=== PATIENT | female | born 1990 ===

== ENCOUNTER 2022-11-12 04:48 | Inpatient (IN) | payer MEDICAID ==
[2022-11-12] MEDS ORDERED: Methylergonovine 0.2 MG/1 ML Amp IM PRN (05:12)
[2022-11-12] MEDS ORDERED: Sodium Chloride 0.9% 10 ML Syringe FLUSH PRN (05:12)
[2022-11-12] MEDS ORDERED: Tranexamic Acid 1,000 MG in Sodium Chloride 0.9% 100 ML IV PRN (05:12)
[2022-11-12] MEDS ORDERED: Misoprostol 200 MCG Tab PO PRN (05:12)
[2022-11-12] MEDS ORDERED: Sodium Chloride 0.9% 2.5 ML Syringe FLUSH PRN (05:12)
[2022-11-12] MEDS ORDERED: Lidocaine 1% 50 ML MDV INJECT PRN (05:12)
[2022-11-12] MEDS ORDERED: Sodium Chloride 0.9% 20 ML SDV IV PRN (05:12)
[2022-11-12] MEDS ORDERED: Water For Irrigation,Sterile 1,000 ML Container IRR PRN (05:12)
[2022-11-12] MEDS ORDERED: Butorphanol 1 MG/ML SDV IVPUSH PRN (05:12)
[2022-11-12] MEDS ORDERED: Terbutaline 1 MG/ML SDV SUBCUT PRN (05:12)
[2022-11-12] MEDS ORDERED: Carboprost Tromethamine 250 MCG/1 ML Amp IM PRN (05:12)
[2022-11-12] MEDS ORDERED: Ondansetron 4 MG/2 ML SDV IVPUSH PRN (05:12)
[2022-11-12] MEDS ORDERED: Oxytocin/0.9 % Sodium Chloride 30 UNIT/500 ML BAG IV SCH (05:15)
[2022-11-12] MEDS ORDERED: Ampicillin 2 GM AdvVial IV ONE (05:19)
[2022-11-12] MEDS ORDERED: Sodium Chloride 0.9% 100 ML ONE (05:19)
[2022-11-12] MEDS: Lactated Ringers 1,000 ML IV SCH ×3 (05:27→11:42)
[2022-11-12] MEDS ORDERED: Ampicillin 2 GM in Sodium Chloride 0.9% 100 ML IV ONE (05:30)
[2022-11-12] MEDS ORDERED: Misoprostol 25 MCG (1/4 of 100 MCG) Tab VAG PRN ×2 (05:30→09:30)
[2022-11-12] MEDS: Oxytocin/0.9 % Sodium Chloride 30 UNIT/500 ML BAG IV SCH ×2 (05:32→10:23)
[2022-11-12] MEDS ORDERED: Ropivacaine/PF 400 MG/200 ML PCA ONE (09:27)
[2022-11-12] MEDS: Ampicillin 1 GM in Sodium Chloride 0.9% 50 ML IV SCH ×3 (09:30→17:14)
[2022-11-12] MEDS ORDERED: ePHEDrine 50 MG/ML SDV IVPUSH PRN (09:48)
[2022-11-12] MEDS ORDERED: Phenylephrine HCl In 0.9% NaCl 1 MG/10 ML Vial IVPUSH PRN (09:48)
[2022-11-12] MEDS ORDERED: Ropivacaine HCl/PF 400 MG in Premix Bag 1 BAG EPIDUR SCH (10:00)
[2022-11-12] MEDS ORDERED: oxyCODONE 5 MG Tab PO PRN (21:03)
[2022-11-12] MEDS ORDERED: Ibuprofen 400 MG Tab PO PRN (21:03)
[2022-11-12] MEDS ORDERED: Bisacodyl 10 MG Supp RECTAL PRN (21:03)
[2022-11-12] MEDS ORDERED: Docusate Sodium 100 MG Cap PO PRN (21:03)
[2022-11-12] MEDS ORDERED: Witch Hazel Medicated Pads 40/Jar TOP PRN (21:03)
[2022-11-12] MEDS ORDERED: Lanolin 100% Cream 7 GM Tube TOP PRN (21:03)
[2022-11-12] MEDS ORDERED: Acetaminophen 500 MG Tab PO PRN ×2 (21:03)
[2022-11-12] MEDS ORDERED: Benzocaine/Menthol 20%-0.5% Spray 78 GM Cannister TOP PRN (21:03)
[2022-11-12] MEDS: Ibuprofen 800 MG Tab PO PRN (22:30)
[2022-11-13] MEDS: Ibuprofen 800 MG Tab PO PRN ×2 (05:02→16:08)
== END 2022-11-14 12:15 | disposition home or self-care (01) | DRG 807 ==
LOC: MW.OBCHECK 04:48 → MW.OB 04:49 → MW.OBCHECK 05:11 → MW.OB 05:12 → OBSVTOIN 20:39 → MW.OB 23:34
PROVIDERS: ADMIT Obstetrics & Gynecology; ATTEND Obstetrics & Gynecology
PROC: 10E0XZZ Delivery of Products of Conception, External Approach (ICD-10-PCS; principal; 2022-11-12)
PROC: 10907ZC Drainage of Amniotic Fluid, Therapeutic from Products of Conception, Via Natural or Artificial Opening (ICD-10-PCS; 2022-11-12)
PROC: 3E0R3BZ Introduction of Anesthetic Agent into Spinal Canal, Percutaneous Approach (ICD-10-PCS; 2022-11-12)
PROC: 00HU33Z Insertion of Infusion Device into Spinal Canal, Percutaneous Approach (ICD-10-PCS; 2022-11-12)
DX: O99.824 Streptococcus B carrier state complicating childbirth (principal); Z37.0 Single live birth; Z3A.39 39 weeks gestation of pregnancy; O77.0 Labor and delivery complicated by meconium in amniotic fluid; O99.324 Drug use complicating childbirth; F15.90 Other stimulant use, unspecified, uncomplicated; Z87.891 Personal history of nicotine dependence; Z86.16 Personal history of COVID-19
CPT/HCPCS: 36415; 51702; 59025; 59409; 80305-QW; 85014; 85018; 85027; 86592; 86850; 86900; 86901; A9270-GY; J0290; J0595; J2405; J2590; J2795; J7050; J7120